=== PATIENT | male | born 1970 | race Caucasian/White ===

== ENCOUNTER 2022-03-31 14:57 | Outpatient (CLI) | payer BC, SELFPAY ==
[2022-03-31 21:39] LABS: Chloride* 94 mmol/L (96-114); Potassium* 4.8 mmol/L (3.6-5.1); Sodium* 133 mmol/L (135-149)
[2022-03-31 21:42] LABS: Blood Urea Nitrogen* 10 mg/dL (7-30); Carbon Dioxide* 29 mmol/L (20-32); Creatinine* 0.9 mg/dL (0.5-1.5); Estimated Glomerular Filt Rate 102 ml/min; Glucose* 104 mg/dL (60-115)
[2022-03-31 21:43] LABS: Calcium* 10.1 mg/dL (8.4-10.6)
== END 2022-03-31 14:58 | disposition home or self-care (01) ==
LOC: FRMREF 14:58
PROVIDERS: PCP Physician Assistant Medical; Visit Provider Physician Assistant Medical
DX: I10 Essential (primary) hypertension (principal)
CPT/HCPCS: 80048

== ENCOUNTER 2022-10-14 14:49 | Outpatient (CLI) | payer BC, SELFPAY ==
[2022-10-14 21:50] LABS: Albumin* 4.7 g/dL (3.3-5.0); Chloride* 100 mmol/L (96-114)
[2022-10-14 21:51] LABS: Potassium* 4.6 mmol/L (3.6-5.1); Sodium* 137 mmol/L (135-149)
[2022-10-14 21:53] LABS: Alkaline Phosphatase* 49 U/L (40-150); Aspartate Amino Transferase* 65 U/L (12-35); Bilirubin Total* 0.9 mg/dL (0.1-1.5); Blood Urea Nitrogen* 7 mg/dL (7-30); Carbon Dioxide* 29 mmol/L (20-32); Cholesterol* 221 mg/dL (90-199); Creatinine* 0.7 mg/dL (0.5-1.5); Estimated Glomerular Filt Rate 110 ml/min; Glucose* 104 mg/dL (60-115); Total Protein* 8.2 g/dL (6.0-8.3); Triglycerides* 61 mg/dL (40-149)
[2022-10-14 21:54] LABS: Alanine Aminotransferase* 54 U/L (4-50); Calcium* 9.4 mg/dL (8.4-10.6); HDL Cholesterol* 97 mg/dL (>=40); LDL Cholesterol Calculated 112 mg/dL (<100)
[2022-10-14 22:18] LABS: Hepatitis B Surface Antigen* Negative (Negative)
[2022-10-14 22:33] LABS: HIV 1/2/P24 Combo Screen* Negative (Negative)
[2022-10-14 22:35] LABS: Hepatitis C Virus Antibody* Negative (Negative)
[2022-10-14 23:09] LABS: Hepatitis B Surface Antibody* Negative (Negative)
[2022-10-17 06:27] LABS: Rapid Plasma Reagin (RPR) Non Reactive (Non Reactive)
== END 2022-10-14 14:50 | disposition home or self-care (01) ==
PROVIDERS: PCP Physician Assistant Medical; Visit Provider Physician Assistant Medical
DX: I10 Essential (primary) hypertension (principal); E78.5 Hyperlipidemia, unspecified; R79.89 Other specified abnormal findings of blood chemistry; F41.9 Anxiety disorder, unspecified; Z11.3 Encounter for screening for infections with a predominantly sexual mode of transmission
CPT/HCPCS: 80053; 80061; 86592; 86703; 86706; 86803; 87340

== ENCOUNTER 2022-10-21 14:17 | Outpatient (CLI) | payer BC, SELFPAY ==
[2022-10-22 14:51] LABS: Chlamydia DNA Amplified* NOT DETECTED (No Detected); GC DNA Amplified* NOT DETECTED (No Detected)
== END 2022-10-21 14:18 | disposition home or self-care (01) ==
PROVIDERS: PCP Physician Assistant Medical; Visit Provider Physician Assistant Medical
DX: Z11.3 Encounter for screening for infections with a predominantly sexual mode of transmission (principal)
CPT/HCPCS: 87491; 87591

== ENCOUNTER 2023-06-23 15:00 | Outpatient (CLI) | payer BC, SELFPAY | END 2023-06-23 15:01 | disposition home or self-care (01) | LOC: FRMREF 15:00 | PROVIDERS: PCP Physician Assistant Medical; Visit Provider Dermatology | DX: L20.9 Atopic dermatitis, unspecified (principal) | CPT/HCPCS: 80053 ==

== ENCOUNTER 2023-09-29 15:18 | Outpatient (CLI) | payer BC, SELFPAY | END 2023-09-29 15:19 | disposition home or self-care (01) | LOC: FRMREF 15:19 | PROVIDERS: PCP Physician Assistant Medical; Visit Provider Dermatology | DX: Z79.899 Other long term (current) drug therapy (principal) | CPT/HCPCS: 80076 ==

== ENCOUNTER 2023-10-27 15:24 | Outpatient (CLI) | payer BC, SELFPAY | END 2023-10-27 15:25 | disposition home or self-care (01) | PROVIDERS: PCP Physician Assistant Medical; Visit Provider Physician Assistant Medical | DX: E78.5 Hyperlipidemia, unspecified (principal) | CPT/HCPCS: 80053; 80061; 84443 ==

== ENCOUNTER 2023-11-08 07:50 | Outpatient (CLI) | payer BC, SELFPAY | END 2023-11-08 07:51 | disposition home or self-care (01) | LOC: NFLDREF 11-21 12:47 | PROVIDERS: PCP Physician Assistant Medical; Referring Provider Physician Assistant Medical; Visit Provider Physician Assistant Medical | DX: R77.9 Abnormality of plasma protein, unspecified (principal) | CPT/HCPCS: 82784; 83520; 84155; 84165; 86334 ==

== ENCOUNTER 2023-11-09 08:05 | Outpatient (CLI) | payer BC, SELFPAY | END 2023-11-09 08:06 | disposition home or self-care (01) | LOC: NFLDREF 11-14 06:07 | PROVIDERS: PCP Physician Assistant Medical; Referring Provider Physician Assistant Medical; Visit Provider Physician Assistant Medical | DX: R77.9 Abnormality of plasma protein, unspecified (principal) | CPT/HCPCS: 83520; 84156; 86335 ==

== ENCOUNTER 2023-12-01 08:15 | Outpatient (CLI) | payer BC, SELFPAY | END 2023-12-01 08:16 | disposition home or self-care (01) | LOC: NFLDREF 12-03 05:30 | PROVIDERS: PCP Physician Assistant Medical; Referring Provider Physician Assistant Medical; Visit Provider Physician Assistant Medical | DX: R77.9 Abnormality of plasma protein, unspecified (principal) | CPT/HCPCS: 82784 ==

== ENCOUNTER 2023-12-26 09:55 | Outpatient (CLI) | payer BC, SELFPAY ==
[2023-12-26 10:06] VITALS: BP 125/80; PULSE 66; RESP 16; O2SAT 97; BMI 26.7
[2023-12-26 11:03] VITALS: BP 121/76; PULSE 72; RESP 16; O2SAT 94
[2023-12-26 11:12] VITALS: BP 127/79; PULSE 70; RESP 16; O2SAT 96
[2023-12-26 11:12] LABS: Basophils Absolute Auto 0.04 K/uL (0.00-0.30); Basophils Percent Auto 0.7 % (0.0-3.0); Eosinophils Absolute Auto 0.09 K/uL (0.00-0.50); Eosinophils Percent Auto 1.5 % (0.0-7.0); Hematocrit 38.5 % (37.0-53.0); Immature Granulocytes Abs Auto 0.01 K/uL (0.00-0.30); Immature Granulocytes Pct Auto 0.2 %; Immature Reticulocyte Fraction 9.9 % (2.3-13.4); Lymphocytes Percent Auto 37.6 % (20-44); Mean Corpuscular HGB Conc 34 gm/dL (32-36); Mean Corpuscular Hemoglobin 32 pg (26-34); Mean Corpuscular Volume 96 fL (80-100); Monocytes Percent Auto 11.1 % (0.0-11.0); Neutrophils Percent Auto 48.9 % (42.0-72.0); Platelet Count* 271 K/uL (140-440); Red Blood Count 4.01 m/uL (4.30-5.90); Reticulocyte Hemoglobin Equivi 34.1 pg (29.0-35.0); Reticulocyte Percent 1.4 % (0.5-2.0); Reticulocytes Absolute 0.06 # (0.03-0.08); White Blood Count* 6.12 K/uL (4.50-11.00)
[2023-12-26 11:13] VITALS: BP 118/77; PULSE 65; RESP 16; O2SAT 96
[2023-12-26 11:14] LABS: Slide Review Reflex No
--- NOTE | 2023-12-26 11:14 | W.ANESCHARGE ---
Anesthesia Charges Start Date/Time Anesthesia Start Date: 12/26/23 Anesthesia Start Time: 10:47 Stop Date/Time Anesthesia Stop Date: 12/26/23 Anesthesia Stop Time: 11:05
[2023-12-26 11:18] VITALS: BP 117/77; PULSE 65; RESP 16; O2SAT 94
[2023-12-26 11:28] VITALS: BP 126/76; PULSE 64; RESP 16; O2SAT 94
--- NOTE | 2023-12-26 11:41 | W.ANESCHARGE ---
Anesthesia Charges Start Date/Time Anesthesia Start Date: 12/26/23 Anesthesia Start Time: 10:47 Stop Date/Time Anesthesia Stop Date: 12/26/23 Anesthesia Stop Time: 11:05
== END 2023-12-26 11:47 | disposition home or self-care (01) ==
PROVIDERS: PCP Physician Assistant Medical; Visit Provider Internal Medicine Hematology & Oncology
DX: R77.9 Abnormality of plasma protein, unspecified (principal)
CPT/HCPCS: 01112; 36415; 38222; 83520; 84156; 85025; 85045; 86335; 88184; 88185; 88305; 88311; 88313; 88341; 88342; 88360; J1644; J2001; J2704

== ENCOUNTER 2024-01-12 16:03 | Outpatient (CLI) | payer BC, SELFPAY ==
--- NOTE | 2024-01-12 16:30 | PE_ITS ---
[facility] [address] [facility] [address] Phone:?[phone] Fax:?[phone] Referring Physician Information: Sylvia Pederson M.D. [address] [facility] [address] Phone:?[phone] Fax:?[phone] Patient:Vignesh Tompkins.O.B:?1970 Sex:?Male Phone:?[phone] [facility] MRN:?[id number] Exam Date:?01/12/2024 EXAM: PET/CT WHOLE BODY, CANCER INITIAL STAGING CLINICAL INFORMATION: Plasma Cell Neoplasm. TECHNICAL INFORMATION: Helical acquisition of data was obtained from the vertex to the toes with reconstruction of 3.75 mm thick images at 3.[address] data was used for attenuation correction. PET scanning was performed through the same anatomic range 60 minutes following administration of 12.73 mCi of 18-FDG delivered intravenously. The patient's glucose at the time of the injection was 106 mg/dL. PET, CT and PET/CT fusion images are interpreted using a computer viewing workstation. PET, CT and PET/CT fusion images were archived and saved in the patient's permanent medical record. COMPARISON: No prior studies were submitted for comparison purposes. INTERPRETATION: Head and Neck: There are no abnormal hypermetabolic foci within the head or neck. There is physiologic uptake in the intracranial soft tissues. Chest: There are no abnormal hypermetabolic foci within the chest. Background mediastinal blood pool uptake has a maximum SUV of 2.09. No lung nodules or masses detected on this free-breathing exam. No lymphadenopathy detected. Abdomen and Pelvis: There are no abnormal hypermetabolic foci within the abdomen or pelvis. Background hepatic parenchymal uptake has a maximum SUV of 2.64. There is physiologic excretion of radiotracer in the urine and bowel. Skeleton, Musculature, and Integument: No abnormal hypermetabolic foci within the skeleton. No irma osteoblastic or osteolytic disease. CONCLUSION: No abnormal FDG uptake to indicate active malignancy. Electronically signed on 01/13/2024 4:06:00 PM by Sonido Dupree M.D.
== END 2024-01-12 16:04 | disposition home or self-care (01) ==
LOC: RAD 16:03
PROVIDERS: PCP Physician Assistant Medical; Visit Provider Internal Medicine Hematology & Oncology
DX: R77.9 Abnormality of plasma protein, unspecified (principal)
CPT/HCPCS: 78816; A9552

== ENCOUNTER 2024-04-02 14:30 | Outpatient (RCR) | payer BC, SELFPAY ==
[2023-12-13 14:15] LABS: Basophils Absolute Auto 0.05 K/uL (0.00-0.30); Basophils Percent Auto 0.7 % (0.0-3.0); Eosinophils Absolute Auto 0.03 K/uL (0.00-0.50); Eosinophils Percent Auto 0.4 % (0.0-7.0); Hemoglobin* 13.1 gm/dL (13.5-17.5); Immature Granulocytes Abs Auto 0.01 K/uL (0.00-0.30); Immature Granulocytes Pct Auto 0.1 %; Lymphocytes Absolute Auto 1.59 K/uL (0.90-2.90); Lymphocytes Percent Auto 22.6 % (20-44); Mean Corpuscular HGB Conc 35 gm/dL (32-36); Mean Corpuscular Hemoglobin 33 pg (26-34); Mean Corpuscular Volume 95 fL (80-100); Monocytes Percent Auto 10.9 % (0.0-11.0); Neutrophils Absolute Auto 4.59 K/uL (1.7-7.0); Neutrophils Percent Auto 65.3 % (42.0-72.0); Platelet Count* 312 K/uL (140-440); RDW Coefficient of Variation % 12.6 % (11.5-15.5); Red Blood Count 4.01 m/uL (4.30-5.90); White Blood Count* 7.04 K/uL (4.50-11.00)
[2023-12-13 14:18] LABS: Slide Review Reflex No
[2023-12-13 14:46] LABS: Albumin* 5.1 g/dL (3.3-5.0); Chloride* 96 mmol/L (96-114); Potassium* 4.8 mmol/L (3.6-5.1); Sodium* 136 mmol/L (135-149)
[2023-12-13 14:48] LABS: Creatinine* 0.8 mg/dL (0.5-1.5); Est. Creatinine Clearance* 102.13; Estimated Glomerular Filt Rate 105 ml/min
[2023-12-13 14:49] LABS: Alanine Aminotransferase* 37 U/L (4-50); Alkaline Phosphatase* 59 U/L (40-150); Anion Gap 10 mEq/L (7-15); Aspartate Amino Transferase* 52 U/L (12-35); Bilirubin Total* 0.8 mg/dL (0.1-1.5); Blood Urea Nitrogen* 10 mg/dL (7-30); Calcium* 9.7 mg/dL (8.4-10.6); Carbon Dioxide* 30 mmol/L (20-32); Glucose* 109 mg/dL (60-115); Lactate Dehydrogenase* 182 U/L (120-246); Total Protein* 9.1 g/dL (6.0-8.3)
[2023-12-14 15:51] LABS: Beta-2-Microglob Serum/Plasma 1.5 mg/L (0.8-2.4)
[2023-12-16 00:38] LABS: Albumin 5.08 g/dL (3.75-5.01); Alpha 1 Globulin 0.26 g/dL (0.19-0.46); Immunofixation IFE Done; Immunoglobulin A 513 mg/dL (68-408); Immunoglobulin G 1382 mg/dL (768-1632); Immunoglobulin M 136 mg/dL (35-263); Kappa/Lambda Light Chain Ratio 1.06 (0.26-1.65); Lambda Qnt Free Light Chains 24.11 mg/L (5.71-26.30); Total Protein, Serum 8.5 g/dL (6.3-8.2)
[2024-01-09 09:43] LABS: Immunoglobulin A 513; Immunoglobulin G 1382; Immunoglobulin M 136
== END 2024-06-10 23:59 | disposition home or self-care (01) ==
LOC: CCIC 14:30
PROVIDERS: PCP Physician Assistant Medical; Referring Provider Physician Assistant Medical; Visit Provider Internal Medicine Hematology & Oncology
DX: R77.9 Abnormality of plasma protein, unspecified (principal)
CPT/HCPCS: 36415; 80053; 82232; 82784; 83520; 83615; 84155; 84165; 85025; 86334; 99202; 99204; 99213; 99214; G0463

== ENCOUNTER 2024-05-11 13:45 | Outpatient (CLI) | payer BC, SELFPAY | END 2024-05-11 13:46 | disposition home or self-care (01) | LOC: NFLDREF 05-21 06:11 | PROVIDERS: PCP Physician Assistant Medical; Referring Provider Physician Assistant Medical; Visit Provider Physician Assistant Medical | DX: R32 Unspecified urinary incontinence (principal); Z12.5 Encounter for screening for malignant neoplasm of prostate | CPT/HCPCS: 87086; G0103 ==

== ENCOUNTER 2024-08-07 14:30 | Outpatient (RCR) | payer BC, SELFPAY ==
[2024-07-23 14:53] LABS: Basophils Absolute Auto 0.02 K/uL (0.00-0.30); Basophils Percent Auto 0.3 % (0.0-3.0); Eosinophils Absolute Auto 0.04 K/uL (0.00-0.50); Eosinophils Percent Auto 0.5 % (0.0-7.0); Hematocrit 37.1 % (37.0-53.0); Hemoglobin* 12.5 gm/dL (13.5-17.5); Immature Granulocytes Abs Auto 0.05 K/uL (0.00-0.30); Immature Granulocytes Pct Auto 0.7 %; Lymphocytes Absolute Auto 1.77 K/uL (0.90-2.90); Lymphocytes Percent Auto 23.3 % (20-44); Mean Corpuscular HGB Conc 34 gm/dL (32-36); Mean Corpuscular Hemoglobin 32 pg (26-34); Mean Corpuscular Volume 96 fL (80-100); Monocytes Percent Auto 11.7 % (0.0-11.0); Neutrophils Absolute Auto 4.82 K/uL (1.7-7.0); Neutrophils Percent Auto 63.5 % (42.0-72.0); Platelet Count* 258 K/uL (140-440); RDW Coefficient of Variation % 12.4 % (11.5-15.5); Red Blood Count 3.86 m/uL (4.30-5.90); White Blood Count* 7.59 K/uL (4.50-11.00)
[2024-07-23 15:04] LABS: Slide Review Reflex No
[2024-07-23 15:14] LABS: Albumin* 5.1 g/dL (3.3-5.0); Chloride* 94 mmol/L (96-114); Potassium* 3.7 mmol/L (3.6-5.1); Sodium* 131 mmol/L (135-149)
[2024-07-23 15:16] LABS: Anion Gap 7 mEq/L (7-15); Aspartate Amino Transferase* 61 U/L (12-35); Bilirubin Total* 0.4 mg/dL (0.1-1.5); Carbon Dioxide* 30 mmol/L (20-32); Creatinine* 0.8 mg/dL (0.5-1.5); Estimated Glomerular Filt Rate 105 ml/min; Total Protein* 8.3 g/dL (6.0-8.3)
[2024-07-23 15:17] LABS: Alanine Aminotransferase* 50 U/L (4-50); Alkaline Phosphatase* 52 U/L (40-150); Blood Urea Nitrogen* 14 mg/dL (7-30); Calcium* 9.8 mg/dL (8.4-10.6); Glucose* 110 mg/dL (60-115)
[2024-07-23 15:32] LABS: Lactate Dehydrogenase* 190 U/L (120-246)
[2024-07-26 08:40] LABS: Alpha 1 Globulin 0.23 g/dL (0.19-0.46); Alpha 2 Globulin 0.54 g/dL (0.48-1.05); Immunofixation IFE Done; Immunoglobulin A 447 mg/dL (68-408); Immunoglobulin G 1190 mg/dL (768-1632); Immunoglobulin M 110 mg/dL (35-263); Kappa Qnt Free Light Chains 22.36 mg/L (3.30-19.40); Kappa/Lambda Light Chain Ratio 1.12 (0.26-1.65); Lambda Qnt Free Light Chains 20.05 mg/L (5.71-26.30)
== END 2025-01-19 23:59 | disposition home or self-care (01) ==
LOC: CCIC 14:30
PROVIDERS: PCP Physician Assistant Medical; Referring Provider Physician Assistant Medical; Visit Provider Internal Medicine Hematology & Oncology
DX: R77.9 Abnormality of plasma protein, unspecified (principal)
CPT/HCPCS: 36415; 80053; 82784; 83520; 83615; 84155; 84165; 85025; 86334

== ENCOUNTER 2024-12-25 07:24 | Outpatient (CLI) | payer BC, SELFPAY | END 2024-12-25 07:25 | disposition home or self-care (01) | PROVIDERS: PCP Physician Assistant Medical; Visit Provider Physician Assistant Medical | DX: Z00.01 Encounter for general adult medical examination with abnormal findings (principal); E78.2 Mixed hyperlipidemia; I10 Essential (primary) hypertension; F41.8 Other specified anxiety disorders; E55.9 Vitamin D deficiency, unspecified | CPT/HCPCS: 80053; 80061; 82306; 84443 ==

== ENCOUNTER 2025-01-03 14:48 | Outpatient (CLI) | payer BC, SELFPAY ==
--- NOTE | 2025-01-03 15:30 | MR_ITS ---
EXAM: MRI of the RIGHT KNEE, without contrast CLINICAL: Right knee injury. Evaluate for medial meniscal tear. COMPARISONS: X-rays 12/25/24. TECHNICAL: Multiplanar multisequence MRI of the right knee was obtained. SEDATION: None. CONTRAST: None. FINDINGS: Ligaments: ACL: Intact and unremarkable. PCL: Intact and unremarkable. MCL: Intact and unremarkable. LCL: Intact and unremarkable. Posterolateral corner: Popliteus, biceps femoris, iliotibial band, and the popliteofibular ligament appear intact. Posteromedial corner: Semimembranosus, pes anserine tendons and posterior oblique ligament appear intact. Extensor mechanism: Patellar tendon: Intact, without tendinopathy. Quadriceps tendon: Intact, without tendinopathy. Retinacula: Medial and lateral retinacula are intact. Fat pads: Unremarkable infrapatellar Hoffa's, quadriceps and prefemoral fat pads. Patellofemoral joint: Patella: No significant chondromalacia. Trochlea: No significant chondromalacia. Medial compartment: Medial meniscus: There is horizontal tearing throughout the posterior horn extending into the body segment as seen on sagittal series 6 images 20-25 and coronal series 8 image 17-21. No meniscal displacement. Medial cartilage: There is deep chondral fissuring involving the lateral aspect of the weightbearing medial femoral condyle on coronal series 8 images 19-20. There is high-grade/full-thickness chondral loss involving the posterior nonweightbearing medial femoral condyle on axial series 4 images 13-15. Grade 2 chondral thinning also involves the weightbearing medial femoral condyle and peripheral medial tibial plateau. Lateral compartment: Lateral meniscus: No evidence of discrete meniscal tear or meniscal displacement. Lateral cartilage: Small region of high-grade chondral loss involving the superior posterior the nonweightbearing lateral femoral condyle on sagittal series 6 image 11. Lateral tibial plateau cartilage is maintained. Knee joint: Effusion: Physiologic right knee effusion. Intra-articular bodies:?No convincing bodies identified. Popliteal cyst: Small. Bones: No suspicious bone marrow signal alteration or fracture line. IMPRESSION: 1. Tearing of the medial meniscus as above. 2. Chondral loss involving the medial compartment and superior posterior nonweightbearing lateral femoral condyle as above. 3. Small popliteal cyst. 4. No evidence of ligamentous injury or fracture. JCZ Electronically signed on 01/04/2025 8:48:00 AM by Velasquez Mariano D.O.
== END 2025-01-03 14:49 | disposition home or self-care (01) ==
LOC: MRI 14:49
PROVIDERS: PCP Physician Assistant Medical; Visit Provider Orthopaedic Surgery Sports Medicine
DX: M25.561 Pain in right knee (principal); S83.241A Other tear of medial meniscus, current injury, right knee, initial encounter; M71.21 Synovial cyst of popliteal space [Baker], right knee
CPT/HCPCS: 73721

== ENCOUNTER 2025-01-16 06:03 | Day surgery (SDC) | payer BC, SELFPAY ==
[2025-01-16] VITALS (11 sets, daily range): BP systolic 108–138; BP diastolic 74–89; PULSE 53–86; RESP 12–20; TEMP 36.1–36.6; O2SAT 95–98; BMI 27.4
[2025-01-16] MEDS: SODIUM CHLORIDE 0.9 % (FLUSH) 10 ML SYRINGE IVF (06:52)
[2025-01-16] MEDS: LACTATED RINGERS 1000 ML 1,000 ML 100 ML IV (06:53)
--- NOTE | 2025-01-16 07:05 | W.PM.H&PU ---
History & Physical Update History & Physical Update H&P Reviewed and patient assessed: No changes noted
[2025-01-16] MEDS: CEFAZOLIN 2 GM in 0.9 % SODIUM CHLORIDE Mini-bag 100 ML IVPB (07:28)
[2025-01-16] MEDS: ROPIVACAINE 0.5% 30 ML 150 MG INJECTION (08:00)
--- NOTE | 2025-01-16 08:12 | P.ANES_ITS ---
Anesthesia Charges Start Date/Time Anesthesia Start Date: 01/16/25 Anesthesia Start Time: 07:15 Stop Date/Time Anesthesia Stop Date: 01/16/25 Anesthesia Stop Time: 08:08 Coding CPT Codes CPT Codes: ANESTH KNEE JOINT SURGERY - 34435 ([id number]) P2 - PATIENT W/MILD SYST DISEASE, QX - STRUCTURAL MILL SUPERVISOR SVSrinivasa W/ MED DIRECTION
--- NOTE | 2025-01-16 08:12 | W.ANESCHARGE ---
Anesthesia Charges Start Date/Time Anesthesia Start Date: 01/16/25 Anesthesia Start Time: 07:15 Stop Date/Time Anesthesia Stop Date: 01/16/25 Anesthesia Stop Time: 08:08 Coding CPT Codes CPT Codes: ANESTH KNEE JOINT SURGERY - 84274 ([id number]) P2 - PATIENT W/MILD SYST DISEASE, QX - PROGRAMMING SPECIALIST SVSrinivasa W/ MED DIRECTION
--- NOTE | 2025-01-16 08:18 | PM.ORPRC ---
Procedure Note Date of procedure: 01/16/25 Procedure: PREOPERATIVE DIAGNOSIS: 1. Right knee medial meniscus tear POSTOPERATIVE DIAGNOSIS: 1. Right knee medial meniscus tear PROCEDURE: 1. Right knee arthroscopic partial medial meniscectomy SURGEON: Alfonso Eaton M.D. CV/CVN CV TSC SYSTEM OPERATOR: Guillaume West PA-C. Of note, an office administrative assistant was critical for this case to aid in patient positioning, knee manipulation, instrument exchange, and closure. ANESTHESIA: Spinal EBL: 2ml TOURNIQUET: 30 min at 300 torr COMPLICATIONS: None evident INDICATIONS: The patient is a pleasant 54-year-old male who has experienced right knee pain particularly with any twisting or turning. Physical exam was concerning for medial meniscus tear, this was confirmed on MRI. Additionally, attempted nonoperative management has been tried, and failed. Thus, surgery was recommended. FINDINGS: Complex tearing of the posterior horn to midbody medial meniscus. Posterior root was intact. Grade 3 chondromalacia medial femoral condyle weight-bearing portion over region measuring approximately 12x20 mm in the Medial-lateral and distal-proximal direction knees, respectively. DESCRIPTION OF PROCEDURE: After a thorough discussion of risks, benefits, and alternatives, the patient was brought to the operating room and placed upon the operating table. Induction of anesthesia was undertaken as previously noted. 2g iv Ancef was administered within 1 hr of incision preoperatively. Appropriate time-out was performed identifying proper patient, site, and procedure. The right lower extremity was prepped and draped in the appropriate sterile fashion using ChloraPrep. The limb was exsanguinated and tourniquet inflated. Anterolateral and anteromedial portals were established with an 11 blade, and a diagnostic arthroscopy was performed. This identified the findings as noted above. Following the diagnostic arthroscopy, a partial medial menisectomy was performed with the combination of basket forceps and a motorized shaver. Following this, the meniscus was re-probed and found to be stable. Approximately 20-25% of the overall meniscus required resection. At this stage, the shaver was reinserted into the suprapatellar pouch and all remaining meniscal debris was evacuated. Instruments were removed, excess fluid was drained, and closure performed with 4-0 Monocryl with Steri-Strips. Dressings were applied, the tourniquet deflated, and the patient was awoken from anesthesia and transferred to the PACU in stable condition. PLAN: 1. Weightbear as tolerated operative extremity. Crutch / walker ambulation assistance PRN. 2. Ice, acetominophen and/or ibuprofen, and Oxycodone for pain as needed. 3. Knee range of motion and quad sets/straight leg raise regularly 4. Follow up with PA visit in 1-2 weeks for a wound check and possibly to initiate physical therapy.
--- NOTE | 2025-01-16 09:31 | P.ANES_ITS ---
Anesthesia Charges Start Date/Time Anesthesia Start Date: 01/16/25 Anesthesia Start Time: 07:15 Stop Date/Time Anesthesia Stop Date: 01/16/25 Anesthesia Stop Time: 08:08 Coding CPT Codes CPT Codes: ANESTH LENS SURGERY - 86682 ([id number]) QK - RN ORTHOPAEDIC 2-4 CNCRNT ANES PROC, QX - RADIOLOGY SUPERVISOR SVC W/ MD MED DIRECTION, P2 - PATIENT W/MILD SYST DISEASE
--- NOTE | 2025-01-16 09:31 | W.ANESCHARGE ---
Anesthesia Charges Start Date/Time Anesthesia Start Date: 01/16/25 Anesthesia Start Time: 07:15 Stop Date/Time Anesthesia Stop Date: 01/16/25 Anesthesia Stop Time: 08:08 Coding CPT Codes CPT Codes: ANESTH LENS SURGERY - 91902 ([id number]) QK - CLOTHES DRIER ASSEMBLER 2-4 CNCRNT ANES PROC, QX - BENCH WORKER BINDING SVC W/ MD MED DIRECTION, P2 - PATIENT W/MILD SYST DISEASE
== END 2025-01-16 09:31 | disposition home or self-care (01) ==
LOC: OR 06:03
PROVIDERS: PCP Physician Assistant Medical; Visit Provider Orthopaedic Surgery Sports Medicine
PROC: (CPT 29870; principal; 2025-01-16 07:15)
DX: S83.231A Complex tear of medial meniscus, current injury, right knee, initial encounter (principal)
CPT/HCPCS: 29881; 00142; 01400; J0690; J2250; J2704; J2795; J7120

== ENCOUNTER 2025-02-21 09:30 | Outpatient (RCR) | payer BC, SELFPAY | END 2025-03-27 09:43 | disposition home or self-care (01) | PROVIDERS: PCP Physician Assistant Medical; Visit Provider Physician Assistant Surgical | DX: Z48.89 Encounter for other specified surgical aftercare (principal); Z87.828 Personal history of other (healed) physical injury and trauma; Z51.89 Encounter for other specified aftercare | CPT/HCPCS: 97032; 97110; 97112; 97140; 97161 ==

== ENCOUNTER 2025-07-03 14:50 | Outpatient (CLI) | payer BC, SELFPAY ==
--- NOTE | 2025-07-03 15:30 | MR_ITS ---
EXAM: MRI of the RIGHT KNEE, without contrast CLINICAL INFORMATION: Male, 55 years old, with right knee pain. INDICATION: Evaluate for internal derangement. PRIOR SURGERY: None reported. PLAIN FILMS: Knee radiograph dated 12/25/2024. COMPARISONS: Right knee MRI dated 01/03/2025. TECHNICAL INFORMATION: Using a 1.5T MR scanner and a localizing surface coil: sagittals: PD, PDFS coronals: PD, STIR axials: PD, T2FS SEDATION: None CONTRAST: None FINDINGS: Knee joint: Effusion: Small right knee effusion. Popliteal cyst: Cberl-hteare-avcfe, inferiorly leaking popliteal (Ruiz's) cyst. Loose bodies: None. Subcutaneous and extra-articular soft tissues: Unremarkable. Ligaments: ACL: Intact ACL anteromedial and posterolateral bundles, without sprain or tear. PCL: Intact PCL, without acute or chronic injury. MCL: Mild-moderate thickening of the proximal 3rd of the superficial MCL, without MCL tear (coronal PD series 7 image 18). LCL: Intact LCL, without injury. Posterolateral corner: No posterolateral corner soft tissue injury. Popliteus, biceps femoris, iliotibial band, popliteofibular ligament and lateral gastrocnemius are intact. Posteromedial corner: No posteromedial corner soft tissue injury. Semimembranosus, pes anserine tendons and posterior oblique ligament are without injury, tendinopathy or bursitis. Extensor mechanism: Patellar tendon: Intact, without tendinopathy. Quadriceps tendon: Intact, without tendinopathy. Retinacula: Medial and lateral retinacula are intact. Fat pads: Low signal intensity foci throughout Hoffa's fat pad reflects scarring from prior arthroscopy. Medial compartment: Medial meniscus: Status post partial medial meniscectomy with a diminutive appearance of the posterior horn and body complex apical free edge and undersurface tearing of the posterior horn and body measures 3.8 cm including near full-thickness radial tearing of the mid body segment and 5 mm of meniscal extrusion. Medial femoral condyle & tibial plateau: Broad-based grade II/III chondromalacia throughout the central, weightbearing aspect of the medial compartment, with mild marginal osteophytosis. Lateral compartment: Lateral meniscus: No articular surface, meniscosynovial junction or root tear. No displacement, extrusion or parameniscal cyst. Lateral femoral condyle: No chondromalacia or osteochondral abnormality. Lateral tibial plateau: No chondromalacia or osteochondral abnormality. Patellofemoral joint: Patella: No chondromalacia or osteochondral abnormality. Trochlea: No chondromalacia or osteochondral abnormality. Proximal tibiofibular joint: Unremarkable, without evidence of ligament sprain injury, joint effusion or adjacent marrow edema. Bones: Approximately 1.8 x 1.3 cm ill-defined subchondral fracturing of the central surface of the medial femoral condyle, with moderate surrounding bone marrow edema (sagittal PD series 5 and sagittal PDFS series 6 image 23 and coronal STIR series 8 image 20). IMPRESSION: 1. Status post partial medial meniscectomy with complex apical free edge and undersurface tearing of the posterior horn and body measuring 3.8 cm and notable for full-thickness radial tearing of the mid body segment, 5 mm of meniscal extrusion. This tear is expected to diminish the intrinsic meniscal load sharing function. 2. Approximately 1.2 x 1.3 subchondral stress/insufficiency fracture of the central surface of the medial femoral condyle, which was not present on the prior study dated 01/03/2025. 3. Mild-moderate osteoarthritis of the medial compartment, which has progressed since the prior study. 4. Chronic sequela of a low-grade proximal MCL sprain. No acute cruciate or collateral ligament sprain/tear. 5. Small knee joint effusion with a [id number]-vvjwy, inferiorly leaking Ruiz cyst. 6. No lateral meniscal tear. 7. No osteochondral abnormality of the lateral or patellofemoral compartment. BC Electronically signed on 07/03/2025 9:05:00 PM by Sonido Mitchell M.D.
== END 2025-07-03 14:51 | disposition home or self-care (01) ==
LOC: MRI 14:51
PROVIDERS: PCP Physician Assistant Medical; Visit Provider Physician Assistant Surgical
DX: M25.561 Pain in right knee (principal); S83.231A Complex tear of medial meniscus, current injury, right knee, initial encounter; M17.11 Unilateral primary osteoarthritis, right knee; M25.461 Effusion, right knee; S83.411S Sprain of medial collateral ligament of right knee, sequela; M23.90 Unspecified internal derangement of unspecified knee; Z98.890 Other specified postprocedural states; Z87.828 Personal history of other (healed) physical injury and trauma
CPT/HCPCS: 73721